=== PATIENT | female | born 1985 | race Caucasian/White ===

== ENCOUNTER 2016-06-14 07:55 | Emergency (ER) | payer MEDICARE, OTHER, SELFPAY ==
[2016-06-14] MEDS ORDERED: ONDANSETRON 4MG/2ML VIAL (J2405) As Ordered ONE (08:23)
[2016-06-14] MEDS ORDERED: KETOROLAC 30 MG/ML VIAL (J1885) As Ordered ONE (08:23)
[2016-06-14 08:44] LABS: BASO % 0.3 % (0.0-1.0); EOS # 0.2 K/mm3 (0.0-0.50); LARGE UNSTAINED CELL # 0.1 K/mm3 (0.0-0.4); LARGE UNSTAINED CELL % 1.1 % (0.0-4.0); LYMPH # 1.5 K/mm3 (1.5-4.5); LYMPH % 16.9 % (24.0-44.0); MEAN CORPUSCULAR HEMOGLOBIN 29.4 pg (27.0-33.0); MEAN CORPUSCULAR HGB CONC 32.8 g/dl (32.0-36.5); MEAN CORPUSCULAR VOLUME 89.8 fl (80.0-96.0); MONO # 0.5 K/mm3 (0.0-0.8); MONO % 5.9 % (0.0-5.0); NEUTROPHILS # 6.4 K/mm3 (1.8-7.7); NEUTROPHILS % 73.8 % (36.0-66.0); PLATELET COUNT, AUTOMATED 212 k/mm3 (150-450); WHITE BLOOD COUNT 8.7 K/mm3 (4.0-10.0)
[2016-06-14 09:03] LABS: ANION GAP 10 MEQ/L (8-16); BLOOD UREA NITROGEN 10 MG/DL (7-18); CALCIUM LEVEL 8.9 MG/DL (8.5-10.1); CARBON DIOXIDE LEVEL 24 MEQ/L (21-32); CHLORIDE LEVEL 106 MEQ/L (98-107); CREATININE FOR GFR 0.78 MG/DL (0.55-1.02); GLOMERULAR FILTRATION RATE > 60.0 (>60); GLUCOSE, FASTING 98 MG/DL (70-105); POTASSIUM SERUM 3.9 MEQ/L (3.5-5.1); SODIUM LEVEL 140 MEQ/L (136-145)
[2016-06-14] MEDS ORDERED: MORPHINE 2 MG/ML 1ML SYRINGE As Ordered ONE (09:29)
[2016-06-14] MEDS ORDERED: cefTRIAXone SOD 1 GM VIAL (J0696) As Ordered ONE (09:30)
--- NOTE | 2016-06-14 10:12 | REP ---
CT study of the abdomen and pelvis without IV or oral contrast: Renal stone protocol. History: Left flank pain. Question stone. Comparison CT study is from August 10, 2015. The patient gives additional history of cholecystectomy and tubal ligation. Findings: Digital auto clocks repairer radiograph demonstrates a normal bowel gas pattern. There are clips in right upper quadrant of the abdomen and there are tubal ligation clamps bilaterally projecting in the pelvis. The lung bases are clear. There is no evidence of pleural effusion. The liver and the spleen are normal in size and homogeneous in texture. There are clips in the gallbladder fossa. There are one or two clips in the posterior peritoneal space adjacent to the bottom edge of the liver as well. No focal liver mass lesion is seen. No adrenal lesion is observed on either side. Pancreas is unremarkable. No retroperitoneal mass or adenopathy is seen. Normal caliber aorta is seen. Kidneys are morphologically intact. No hydronephrosis is seen. No intrarenal calculus is observed. No ureteral stone is seen. Urinary bladder shows no abnormality. No uterine or ovarian abnormality is seen. Small and large bowel loops are unremarkable. A normal appendix is seen terminating in the right central pelvis. No abdominal wall defect is observed. No bony destructive lesion is seen. Impression: Status post tubal ligation and cholecystectomy. No evidence of urinary tract calculus or hydronephrosis. No acute intra-abdominal abnormality. Normal appendix seen. Signed by Pedro Harry MD 06/14/2016 02:33 P
--- NOTE | 2016-06-14 10:27 | EDDOCDS ---
Physician Documentation [facility] Name: Lavinia Brand Age: 30 yrs Sex: Female : 1985 Arrival Date: 06/14/2016 Time: 07:55 Bed I3 / M3 Private MD: Disposition: 06/14/16 10:18 Discharged to Home/Self Care. Impression: Urinary tract infection, site not specified - early left pyelonephritis. - Condition is Stable. - Discharge Instructions: Urinary Tract Infection. - Prescriptions for ZOFRAN ODT 4 mg Oral - dissolve 1 tablet by ORAL route every 8 hours As needed do not chew, do not swallow whole; 10 tablet. Macrobid 100 mg Oral Capsule - take 100 milligrams by ORAL route every 12 hours for 10 days; 20 capsule. - Medication Reconciliation, Local Pharmacy Hours form. - [facility] up[facility]; When: Call to arrange an appointment; Reason: Recheck today's complaints, Continuance of care, To establish care. Follow up: Emergency Department; When: As needed; Reason: Fever > 102F, Worsening of conditions. - Problem is new. - Symptoms have improved. Historical: - Allergies: No known drug Allergies; - Home Meds: 1. Motrin 800mg Oral tab as needed (Last dose: 06/13/2016 23:30) - PMHx: Kidney stones; - PSHx: Cholecystectomy; Tubal ligation; - Social history: Smoking status: Patient states former smoker of tobacco. No barriers to communication noted, The patient speaks fluent Qatari, Speaks appropriately for age. - Family history: Not pertinent. - : The pt / caregiver states he / she is not on anticoagulants. Home medication list is obtained from the patient. - Exposure Risk Screening:: None identified. 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 2 in. (157.48 cm) (R); Pain 8/10; 10:00 Pain 5/10; ck1 10:01 BP 129 / 69 RA Sitting (auto/lg); Pulse 68; Resp 20; Temp 98.7(O); Pulse Ox 97% on R/A; bnb Pain 6/10; 08:03 Body Mass Index 32.92 (81.65 kg, 157.48 cm) hs1 MDM: 08:19 IV Saline Lock ordered. ar2 08:19 UCG by Nursing ordered. ar2 08:19 -Blood Culture (Adults Only), peripheral from different site, or from device/port/PICC ar2 etc. if present ordered. 08:19 NS 0.9% 1000 ml IV at bolus once ordered. ar2 08:19 ketorolac 30 mg IVP once; ADMINISTER IF NEGATIVE UCG ordered. ar2 08:19 Ondansetron 4 mg IVP once; ADMINISTER IF NEGATIVE UCG ordered. ar2 08:20 CBC with Diff Ordered. EDMS 08:20 MED Profile Ordered. EDMS 08:20 UA Ordered. EDMS 08:20 Urine Culture Ordered. EDMS 08:20 -Blood Culture Ordered. EDMS 08:27 BLOOD CULTURES Ordered. EDMS 08:33 -Blood Culture (Adults Only), peripheral from different site, or from device/port/PICC mcp etc. if present complete. 09:16 [facility] Payment Agreement was scanned into [employer] and attached to record. jp5 09:16 Financial registration complete. jp5 09:22 CBC with Diff Reviewed. ar2 09:22 UA Reviewed. ar2 09:22 MED Profile Reviewed. ar2 09:26 cefTRIAXone 1 grams IVPB once over 30 mins; dilute in 50mL of NS or D5W ordered. ar2 09:26 morphine 2 mg IVP once ordered. ar2 09:27 CT ABD & PELVIS: No Contrast Ordered. EDMS Point of Care Testing: Urine : 08:23 hCG Reading: Negative; jam1 Ranges: Administered Medications: 08:29 Drug: NS 0.9% 1000 ml [sodium chloride 0.9 % intravenous solution] Route: IV; Rate: hs1 bolus; Site: left antecubital; 08:29 Drug: ketorolac 30 mg [ketorolac 30 mg/mL (1 mL) injection solution (1 mL)] Route: IVP; hs1 Site: left antecubital; 08:29 Drug: Ondansetron 4 mg [ondansetron HCl 2 mg/mL intravenous solution (2 mL)] Route: hs1 IVP; Site: left antecubital; 09:41 Drug: cefTRIAXone 1 grams [ceftriaxone 1 gram solution for injection] Route: IVPB; ck1 Infused Over: 30 mins; Site: left antecubital; :41 Drug: morphine 2 mg [morphine 2 mg/mL intravenous cartridge (1 mL)] Route: IVP; Site: ck1 left antecubital; 10:00 Follow up: Pain 09/14 Adult; Response: Confirmed pt not driving.; No Adverse Reaction; ck1 Pain is decreased Signatures: Dispatcher [employer] Deb Guzman RN RN Kandi Rasheed RN RN ck1 Jaylan Simons PA-C PAKatherine ar2 Mary Kate Mendez RN RN hs1 Lauren Ledesma jp5 The chart was reviewed and I authenticate all verbal orders and agree with the evaluation and treatment provided.Attachments: :16 [facility] Payment Agreement jp5 MTDD
--- NOTE | 2016-06-14 10:28 | EDDOCDS ---
Nurse's Notes [facility] Name: Lavinia Brand Age: 30 yrs Sex: Female : 1985 Arrival Date: 06/14/2016 Time: 07:55 Bed I3 / M3 Private MD: Diagnosis: Urinary tract infection, site not specified-early left pyelonephritis Presentation: 06/14 08:03 Presenting complaint: Patient states: I believe I have a kidney infection. Pt reports hs1 fever and chills, not being able to get warm. Pain in back and nauseated. Adult Sepsis Screening: The patient does not have new or worsening altered mentation. Patient's respiratory rate is less than 22. Systolic blood pressure is greater than 100. Patient has a qSOFA score of 0- Negative Sepsis Screen. Suicide/Homicide risk assessment- the patient denies having any suicidal and/or homicidal ideations and does not present with any other emotional, behavioral or mental health complaints. Status: Patient is not a guest service host or dependent. Transition of care: patient was not received from another setting of care. 08:03 Acuity: NICHOL Level 3 hs1 08:03 Method Of Arrival: Walkin/Carried/Asstd hs1 Triage Assessment: 08:06 General: Appears uncomfortable, Behavior is appropriate for age, cooperative, crying. hs1 Pain: Location: left low back, suprapubic area, left lower quadrant, left femoral area, left inguinal area and left iliac crest Pain currently is 8 out of 10 on a pain scale. HIV screening NA for this visit Offered previously. Respiratory: No deficits noted. Derm: Skin is pink, warm & dry. normal. 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 Motrin 800mg Oral tab as needed (Last dose: 06/13/2016 23:30) - PMHx: Kidney stones; - PSHx: Cholecystectomy; Tubal ligation; - Social history: Smoking status: Patient states former smoker of tobacco. No barriers to communication noted, The patient speaks fluent Macedonian, Speaks appropriately for age. - Family history: Not pertinent. - : The pt / caregiver states he / she is not on anticoagulants. Home medication list is obtained from the patient. - Exposure Risk Screening:: None identified. Screenin:32 Screening information is obtained from the patient. Fall risk: No risks identified. mcp Assistance ADL's: requires no assistance with activities of daily living. Abuse/DV Screen: The patient / caregiver reports he/she is: not in a situation that causes fear, pain or injury. Nutritional screening: No deficits noted. Advance Directives: There is no active DNR order. home support is adequate. Assessment: 08:32 General: Appears distressed, uncomfortable, Behavior is cooperative, crying. Pain: mcp Location: left flank and left lower quadrant and suprapubic area Pain currently is 8 out of 10 on a pain scale. Noted to be crying. Neurological: No deficits noted. Respiratory: Airway is patent Respiratory effort is even, unlabored. Derm: Skin is pink, warm & dry. 09:25 General: Patient reports nausea has improved, pain 7/10. Resting quietly on stretcher, ck1 no acute distress noted at this time. SO at bedside, call light in reach. Will continue to monitor patient. 10:00 General: Patient OOB to bathroom. Gait steady, feeling lightheaded. No acute distress ck1 noted at this time, reports pain 5/10. Denies nausea. Call light in reach, SO at bedside. 10:25 General: Appears in no apparent distress, comfortable, Behavior is appropriate for age, ck1 cooperative. Pain: Location: abdomen Pain currently is 3 out of 10 on a pain scale. Neurological: Level of Consciousness is awake, alert, obeys commands. Respiratory: Respiratory effort is unlabored, Respiratory pattern is regular, symmetrical. : Denies vaginal bleeding. Derm: Skin is pink, warm & dry. Vital Signs: 08:03 BP 135 / 65; Pulse 116; Resp 18; Temp 99.4; Pulse Ox 98% ; Weight 81.65 kg (R); Height hs1 5 ft. 2 in. (157.48 cm) (R); Pain 8/10; 10:00 Pain 5/10; ck1 10:01 BP 129 / 69 RA Sitting (auto/lg); Pulse 68; Resp 20; Temp 98.7(O); Pulse Ox 97% on R/A; bnb Pain 6/10; 08:03 Body Mass Index 32.92 (81.65 kg, 157.48 cm) hs1 Vitals: 08:03 Log In Time: June 14, 2016 at 07:53. hs1 ED Course: 07:56 Patient visited by Phil Phoenix. mm15 07:56 Patient moved to Waiting mm15 08:04 Triage Initiated hs1 08:07 Patient moved to I3 / M3 hs1 08:08 Jaylan Simons PA-C is PHCP. ar2 08:08 Eva Vicente MD is Attending Physician. ar2 08:08 Patient visited by Jaylan Simons PA-C. ar2 08:31 -Blood Culture Sent. mcp 08:31 Urine Culture Sent. mcp 08:31 UA Sent. mcp 08:31 MED Profile Sent. [facility] 08:31 CBC with Diff Sent. [facility] 08:31 Inserted saline lock: 20 gauge in left antecubital area and blood collected. The [facility] patient tolerated the procedure well. Labs drawn. (by ED staff). Sent per order to lab. Urine collected. Clean catch specimen. Urine specimen sent to lab. 08:32 The patient / caregiver is instructed regarding the plan of care and ED course. Patient mcp has correct armband on for positive identification. Placed in gown. Bed in low position. Call light in reach. Adult w/ patient. 08:33 Patient visited by Deb Stern, DARVIN. [facility] 09:15 Patient visited by Kandi Link,DARVIN. ck1 09:16 [facility] Payment Agreement was scanned into [employer] and attached to record. jp5 09:40 Patient visited by Kandi Link,DARVIN. ck1 10:00 Patient visited by Kandi Link,DARVIN. ck1 10:02 Patient visited by Sussy Waters PCA. bnb 10:17 CT ABD & PELVIS: No Contrast Returned. EDMS 10:18 [facility] is Referral Physician. ar2 10:21 No procedures done that require assistance. ck1 10:25 Discontinued lock intact, bleeding controlled, pressure dressing applied, No ck1 redness/swelling at site. Administered Medications: 08:29 Drug: NS 0.9% 1000 ml [sodium chloride 0.9 % intravenous solution] Route: IV; Rate: hs1 bolus; Site: left antecubital; 08:29 Drug: ketorolac 30 mg [ketorolac 30 mg/mL (1 mL) injection solution (1 mL)] Route: IVP; hs1 Site: left antecubital; 08:29 Drug: Ondansetron 4 mg [ondansetron HCl 2 mg/mL intravenous solution (2 mL)] Route: hs1 IVP; Site: left antecubital; 09:41 Drug: cefTRIAXone 1 grams [ceftriaxone 1 gram solution for injection] Route: IVPB; ck1 Infused Over: 30 mins; Site: left antecubital; 09:41 Drug: morphine 2 mg [morphine 2 mg/mL intravenous cartridge (1 mL)] Route: IVP; Site: ck1 left antecubital; 10:00 Follow up: Pain 5/ Adult; Response: Confirmed pt not driving.; No Adverse Reaction; ck1 Pain is decreased Point of Care Testing: Urine : 08:23 hCG Reading: Negative; jam1 Ranges: Order Results: Lab Order: CBC with Diff; SPEC'M 06/14/16 08:30 Test: WHITE BLOOD COUNT; Value: 8.7; Range: 4.0-10.0; Units: K/mm3; Status: F Test: RED BLOOD COUNT; Value: 4.55; Range: 4.00-5.40; Units: M/mm3; Status: F Test: HEMOGLOBIN; Value: 13.4; Range: 12.0-16.0; Units: g/dl; Status: F Test: HEMATOCRIT; Value: 40.8; Range: 36.0-47.0; Units: %; Status: F Test: MEAN CORPUSCULAR VOLUME; Value: 89.8; Range: 80.0-96.0; Units: fl; Status: F Test: MEAN CORPUSCULAR HEMOGLOBIN; Value: 29.4; Range: 27.0-33.0; Units: pg; Status: F Test: MEAN CORPUSCULAR HGB CONC; Value: 32.8; Range: 32.0-36.5; Units: g/dl; Status: F Test: RED CELL DISTRIBUTION WIDTH; Value: 13.0; Range: 11.5-14.5; Units: %; Status: F Test: PLATELET COUNT, AUTOMATED; Value: 212; Range: 150-450; Units: k/mm3; Status: F Test: NEUTROPHILS %; Value: 73.8; Range: 36.0-66.0; Abnormal: Above high normal; Units: %; Status: F Test: LYMPH %; Value: 16.9; Range: 24.0-44.0; Abnormal: Below low normal; Units: %; Status: F Test: MONO %; Value: 5.9; Range: 0.0-5.0; Abnormal: Above high normal; Units: %; Status: F Test: EOS %; Value: 2.0; Range: 0.0-3.0; Units: %; Status: F Test: BASO %; Value: 0.3; Range: 0.0-1.0; Units: %; Status: F Test: LARGE UNSTAINED CELL %; Value: 1.1; Range: 0.0-4.0; Units: %; Status: F Test: NEUTROPHILS #; Value: 6.4; Range: 1.8-7.7; Units: K/mm3; Status: F Test: LYMPH #; Value: 1.5; Range: 1.5-4.5; Units: K/mm3; Status: F Test: MONO #; Value: 0.5; Range: 0.0-0.8; Units: K/mm3; Status: F Test: EOS #; Value: 0.2; Range: 0.0-0.50; Units: K/mm3; Status: F Test: BASO #; Value: 0.0; Range: 0.0-0.2; Units: K/mm3; Status: F Test: LARGE UNSTAINED CELL #; Value: 0.1; Range: 0.0-0.4; Units: K/mm3; Status: F Lab Order: MED Profile; [facility] 06/14/16 08:30 Test: GLUCOSE, FASTING; Value: 98; Range: 70-105; Units: MG/DL; Status: F Test: BLOOD UREA NITROGEN; Value: 10; Range: 7-18; Units: MG/DL; Status: F Test: CREATININE FOR GFR; Value: 0.78; Range: 0.55-1.02; Units: MG/DL; Status: F Test: GLOMERULAR FILTRATION RATE; Value: > 60.0; Range: >60; Status: F Test: SODIUM LEVEL; Value: 140; Range: 136-145; Units: MEQ/L; Status: F Test: POTASSIUM SERUM; Value: 3.9; Range: 3.5-5.1; Units: MEQ/L; Status: F Test: CHLORIDE LEVEL; Value: 106; Range: 98-107; Units: MEQ/L; Status: F Test: CARBON DIOXIDE LEVEL; Value: 24; Range: 21-32; Units: MEQ/L; Status: F Test: ANION GAP; Value: 10; Range: 8-16; Units: MEQ/L; Status: F Test: CALCIUM LEVEL; Value: 8.9; Range: 8.5-10.1; Units: MG/DL; Status: F Test Note: ; Units are mL/min/1.73 m2 Chronic Kidney Disease Staging per NKF: Stage I & II GFR >=60 Normal to Mildly Decreased Stage III GFR 30-59 Moderately Decreased Stage IV GFR 15-29 Severely Decreased Stage V GFR <15 Very Little GFR Left ESRD GFR <15 on PULL UP HAND Lab Order: UA; SPEC'M 06/14/16 08:30 Test: APPEARANCE, URINE; Value: HAZY; Range: CLEAR; Status: F Test: COLOR, URINE; Value: YELLOW; Range: YELLOW; Status: F Test: PH,URINE; Value: 8.0; Range: 5.0-9.0; Units: UNITS; Status: F Test: SPECIFIC GRAVITY URINE AUTO; Value: 1.013; Range: 1.002-1.035; Status: F Test: PROTEIN, URINE AUTO; Value: NEGATIVE; Range: NEGATIVE; Units: mg/dL; Status: F Test: GLUCOSE, URINE (UA) AUTO; Value: NEGATIVE; Range: NEGATIVE; Units: mg/dL; Status: F Test: KETONE, URINE AUTO; Value: NEGATIVE; Range: NEGATIVE; Units: mg/dL; Status: F Test: UROBILINOGEN, URINE AUTO; Value: 0.2; Range: 0.0-2.0; Units: mg/dL; Status: F Test: BILIRUBIN, URINE AUTO; Value: NEGATIVE; Range: NEGATIVE; Status: F Test: NITRITE, URINE AUTO; Value: NEGATIVE; Range: NEGATIVE; Status: F Test: LEUKOCYTE ESTERASE, URINE AUTO; Value: 2+; Range: NEGATIVE; Abnormal: Above high normal; Status: F Test: BLOOD, URINE BLOOD; Value: 1+; Range: NEGATIVE; Abnormal: Above high normal; Status: F Test: WBC, URINE AUTO; Value: 125; Range: 0-3; Abnormal: Above high normal; Units: /HPF; Status: F Test: RBC, URINE AUTO; Value: 11; Range: 0-3; Abnormal: Above high normal; Units: /HPF; Status: F Test: BACTERIA, URINE AUTO; Value: 2+; Range: NEGATIVE; Abnormal: Above high normal; Status: F Test: SQUAMOUS EPITHELIAL CELL UR AU; Value: 2; Range: 0-6; Units: /HPF; Status: F Test: MUCUS, URINE; Value: SMALL; Range: NEGATIVE; Status: F Test: HYALINE CAST, URINE AUTO; Value: 0; Range: 0-1; Units: /LPF; Status: F Radiology Order: CT ABD & PELVIS: No Contrast Test: CT ABD & PELVIS: No Contrast REASON FOR EXAMINATION: left flank pain ? stone; CT study of the abdomen and pelvis without IV or oral contrast: Renal stone; protocol.; ; History: Left flank pain. Question stone. Comparison CT study is from August 092015. The patient gives additional history of cholecystectomy and tubal; ligation.; ; Findings: Digital child watch attendant radiograph demonstrates a normal bowel gas pattern.; There are clips in right upper quadrant of the abdomen and there are tubal; ligation clamps bilaterally projecting in the pelvis.; ; The lung bases are clear. There is no evidence of pleural effusion. The liver; and the spleen are normal in size and homogeneous in texture. There are clips in; the gallbladder fossa. There are one or two clips in the posterior peritoneal; space adjacent to the bottom edge of the liver as well. No focal liver mass; lesion is seen. No adrenal lesion is observed on either side. Pancreas is; unremarkable. No retroperitoneal mass or adenopathy is seen. Normal caliber; aorta is seen.; ; Kidneys are morphologically intact. No hydronephrosis is seen. No intrarenal; calculus is observed. No ureteral stone is seen. Urinary bladder shows no; abnormality. No uterine or ovarian abnormality is seen. Small and large bowel; loops are unremarkable. A normal appendix is seen terminating in the right; central pelvis. No abdominal wall defect is observed. No bony destructive; lesion is seen.; ; Impression:; ; Status post tubal ligation and cholecystectomy. No evidence of urinary tract; calculus or hydronephrosis. No acute intra-abdominal abnormality. Normal; appendix seen.; ; ; ; ; Unreviewed; Outcome: 09:41 CT Study completed. ck1 10:18 Discharge ordered by Provider. ar2 10:25 Discharge Assessment: Patient awake, alert and oriented x 3. No cognitive and/or ck1 functional deficits noted. Patient verbalized understanding of disposition instructions. patient administered narcotics - yes. Pt provided with safe discharge. The following High Risk Discharge criteria are identified: None. Discharged to home ambulatory, with significant other. Condition: stable. Discharge instructions given to patient, Instructed on discharge instructions, follow up and referral plans. medication usage, Demonstrated understanding of instructions, medications, Pt was receptive of discharge instructions/ teaching. Prescriptions given X 2. Property :Personal belongings accompany Pt. 10:26 Patient left the ED. ck1 Signatures: Dispatcher [employer] EDMS Deb Stern RN RN Mary Olvera, BRASS POLISHER BRASS POLISHER jam1 Kandi Link RN RN ck1 Jaylan Simons, PA-Tejas PA-C ar2 Mary Kate Mendez, DARVIN RN hs1 Phil Phoenix mm15 Lauren Ledesma jp5 Sussy Waters, BRASS POLISHER BRASS POLISHER bnb [facility]
--- NOTE | 2016-06-16 11:28 | EDDOCDS ---
Physician Documentation [facility] Name: Lavinia Brand Age: 30 yrs Sex: Female : 1985 Arrival Date: 06/14/2016 Time: 07:55 Bed I3 / M3 Private MD: Disposition: 06/14/16 10:18 Discharged to Home/Self Care. Impression: Urinary tract infection, site not specified - early left pyelonephritis. - Condition is Stable. - Discharge Instructions: Urinary Tract Infection. - Prescriptions for ZOFRAN ODT 4 mg Oral - dissolve 1 tablet by ORAL route every 8 hours As needed do not chew, do not swallow whole; 10 tablet. Macrobid 100 mg Oral Capsule - take 100 milligrams by ORAL route every 12 hours for 10 days; 20 capsule. - Medication Reconciliation, Local Pharmacy Hours form. - [facility] up[facility]; When: Call to arrange an appointment; Reason: Recheck today's complaints, Continuance of care, To establish care. Follow up: Emergency Department; When: As needed; Reason: Fever > 102F, Worsening of conditions. - Problem is new. - Symptoms have improved. Historical: - Allergies: No known drug Allergies; - Home Meds: 1. Motrin 800mg Oral tab as needed (Last dose: 06/13/2016 23:30) - PMHx: Kidney stones; - PSHx: Cholecystectomy; Tubal ligation; - Social history: Smoking status: Patient states former smoker of tobacco. No barriers to communication noted, The patient speaks fluent Citizen Of [place], Speaks appropriately for age. - Family history: Not pertinent. - : The pt / caregiver states he / she is not on anticoagulants. Home medication list is obtained from the patient. - Exposure Risk Screening:: None identified. 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 2 in. (157.48 cm) (R); Pain 8/10; 10:00 Pain 5/10; ck1 10:01 BP 129 / 69 RA Sitting (auto/lg); Pulse 68; Resp 20; Temp 98.7(O); Pulse Ox 97% on R/A; bnb Pain 10; 08:03 Body Mass Index 32.92 (81.65 kg, 157.48 cm) hs1 MDM: 08:19 IV Saline Lock ordered. ar2 08:19 UCG by Nursing ordered. ar2 08:19 -Blood Culture (Adults Only), peripheral from different site, or from device/port/PICC ar2 etc. if present ordered. 08:19 NS 0.9% 1000 ml IV at bolus once ordered. ar2 08:19 ketorolac 30 mg IVP once; ADMINISTER IF NEGATIVE UCG ordered. ar2 08:19 Ondansetron 4 mg IVP once; ADMINISTER IF NEGATIVE UCG ordered. ar2 08:20 CBC with Diff Ordered. EDMS 08:20 MED Profile Ordered. EDMS 08:20 UA Ordered. EDMS 08:20 Urine Culture Ordered. EDMS 08:20 -Blood Culture Ordered. EDMS 08:27 BLOOD CULTURES Ordered. EDMS 08:33 -Blood Culture (Adults Only), peripheral from different site, or from device/port/PICC mcp etc. if present complete. 09:16 [facility] Payment Agreement was scanned into [employer] and attached to record. jp5 09:16 Financial registration complete. jp5 09:22 CBC with Diff Reviewed. ar2 09:22 UA Reviewed. ar2 09:22 MED Profile Reviewed. ar2 09:26 cefTRIAXone 1 grams IVPB once over 30 mins; dilute in 50mL of NS or D5W ordered. ar2 09:26 morphine 2 mg IVP once ordered. ar2 09:27 CT ABD & PELVIS: No Contrast Ordered. EDMS 06/15 12:06 T-Sheet-- Draft Copy was scanned into [employer] and attached to record. gb 12:06 Radiology Report was scanned into [employer] and attached to record. gb Point of Care Testing: Urine : 06/14 08:23 hCG Reading: Negative; jam1 Ranges: Administered Medications: 08:29 Drug: NS 0.9% 1000 ml [sodium chloride 0.9 % intravenous solution] Route: IV; Rate: hs1 bolus; Site: left antecubital; 08:29 Drug: ketorolac 30 mg [ketorolac 30 mg/mL (1 mL) injection solution (1 mL)] Route: IVP; hs1 Site: left antecubital; 08:29 Drug: Ondansetron 4 mg [ondansetron HCl 2 mg/mL intravenous solution (2 mL)] Route: hs1 IVP; Site: left antecubital; 09:41 Drug: cefTRIAXone 1 grams [ceftriaxone 1 gram solution for injection] Route: IVPB; ck1 Infused Over: 30 mins; Site: left antecubital; 09:41 Drug: morphine 2 mg [morphine 2 mg/mL intravenous cartridge (1 mL)] Route: IVP; Site: ck1 left antecubital; 10:00 Follow up: Pain 09/14 Adult; Response: Confirmed pt not driving.; No Adverse Reaction; ck1 Pain is decreased Signatures: Dispatcher [employer] EDMS Deb Stern RN RN [facility] Anaid Richards, Ar Reg Kandi Louis RN RN ck1 Jaylan Simons PA-C PA-C ar2 Mary Kate Mendez RN RN hs1 Lauren Ledesma jp5 The chart was reviewed and I authenticate all verbal orders and agree with the evaluation and treatment provided.Attachments: 09:16 [facility] Payment Agreement jp5 06/15 12:06 T-Sheet-- Draft Copy gb Chart Complete MTDD
--- NOTE | 2016-06-16 11:28 | EDDOCDS ---
Nurse's Notes [facility] Name: Lavinia Brand Age: 30 yrs Sex: Female : 1985 Arrival Date: 06/14/2016 Time: 07:55 Bed I3 / M3 Private MD: Diagnosis: Urinary tract infection, site not specified-early left pyelonephritis Presentation: 06/14 08:03 Presenting complaint: Patient states: I believe I have a kidney infection. Pt reports hs1 fever and chills, not being able to get warm. Pain in back and nauseated. Adult Sepsis Screening: The patient does not have new or worsening altered mentation. Patient's respiratory rate is less than 22. Systolic blood pressure is greater than 100. Patient has a qSOFA score of 0- Negative Sepsis Screen. Suicide/Homicide risk assessment- the patient denies having any suicidal and/or homicidal ideations and does not present with any other emotional, behavioral or mental health complaints. Status: Patient is not a office services representative or dependent. Transition of care: patient was not received from another setting of care. 08:03 Acuity: NICHOL Level 3 hs1 08:03 Method Of Arrival: Walkin/Carried/Asstd hs1 Triage Assessment: 08:06 General: Appears uncomfortable, Behavior is appropriate for age, cooperative, crying. hs1 Pain: Location: left low back, suprapubic area, left lower quadrant, left femoral area, left inguinal area and left iliac crest Pain currently is 8 out of 10 on a pain scale. HIV screening NA for this visit Offered previously. Respiratory: No deficits noted. Derm: Skin is pink, warm & dry. normal. 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 Motrin 800mg Oral tab as needed (Last dose: 06/13/2016 23:30) - PMHx: Kidney stones; - PSHx: Cholecystectomy; Tubal ligation; - Social history: Smoking status: Patient states former smoker of tobacco. No barriers to communication noted, The patient speaks fluent [place], Speaks appropriately for age. - Family history: Not pertinent. - : The pt / caregiver states he / she is not on anticoagulants. Home medication list is obtained from the patient. - Exposure Risk Screening:: None identified. Screenin:32 Screening information is obtained from the patient. Fall risk: No risks identified. mcp Assistance ADL's: requires no assistance with activities of daily living. Abuse/DV Screen: The patient / caregiver reports he/she is: not in a situation that causes fear, pain or injury. Nutritional screening: No deficits noted. Advance Directives: There is no active DNR order. home support is adequate. Assessment: 08:32 General: Appears distressed, uncomfortable, Behavior is cooperative, crying. Pain: mcp Location: left flank and left lower quadrant and suprapubic area Pain currently is 8 out of 10 on a pain scale. Noted to be crying. Neurological: No deficits noted. Respiratory: Airway is patent Respiratory effort is even, unlabored. Derm: Skin is pink, warm & dry. 09:25 General: Patient reports nausea has improved, pain 7/10. Resting quietly on stretcher, ck1 no acute distress noted at this time. SO at bedside, call light in reach. Will continue to monitor patient. 10:00 General: Patient OOB to bathroom. Gait steady, feeling lightheaded. No acute distress ck1 noted at this time, reports pain 5/10. Denies nausea. Call light in reach, SO at bedside. 10:25 General: Appears in no apparent distress, comfortable, Behavior is appropriate for age, ck1 cooperative. Pain: Location: abdomen Pain currently is 3 out of 10 on a pain scale. Neurological: Level of Consciousness is awake, alert, obeys commands. Respiratory: Respiratory effort is unlabored, Respiratory pattern is regular, symmetrical. : Denies vaginal bleeding. Derm: Skin is pink, warm & dry. Vital Signs: 08:03 BP 135 / 65; Pulse 116; Resp 18; Temp 99.4; Pulse Ox 98% ; Weight 81.65 kg (R); Height hs1 5 ft. 2 in. (157.48 cm) (R); Pain 8/10; 10:00 Pain 5/10; ck1 10:01 BP 129 / 69 RA Sitting (auto/lg); Pulse 68; Resp 20; Temp 98.7(O); Pulse Ox 97% on R/A; bnb Pain 6/10; 08:03 Body Mass Index 32.92 (81.65 kg, 157.48 cm) hs1 Vitals: 08:03 Log In Time: June 14, 2016 at 07:53. hs1 ED Course: 07:56 Patient visited by Phil Phoenix. mm15 07:56 Patient moved to Waiting mm15 08:04 Triage Initiated hs1 08:07 Patient moved to I3 / M3 hs1 08:08 Jaylan Simons PA-C is PHCP. ar2 08:08 Eva Vicente MD is Attending Physician. ar2 08:08 Patient visited by Jaylan Simons PA-C. ar2 08:31 -Blood Culture Sent. mcp 08:31 Urine Culture Sent. mcp 08:31 UA Sent. mcp 08:31 MED Profile Sent. [facility] 08:31 CBC with Diff Sent. [facility] 08:31 Inserted saline lock: 20 gauge in left antecubital area and blood collected. The [facility] patient tolerated the procedure well. Labs drawn. (by ED staff). Sent per order to lab. Urine collected. Clean catch specimen. Urine specimen sent to lab. 08:32 The patient / caregiver is instructed regarding the plan of care and ED course. Patient mcp has correct armband on for positive identification. Placed in gown. Bed in low position. Call light in reach. Adult w/ patient. 08:33 Patient visited by Deb Stern, DARVIN. [facility] 09:15 Patient visited by Kandi Link,DARVIN. ck1 09:16 [facility] Payment Agreement was scanned into [employer] and attached to record. jp5 09:40 Patient visited by Kandi Link,RN. ck1 10:00 Patient visited by Kandi Link,RN. ck1 10:02 Patient visited by Sussy Waters PCA. bnb 10:17 CT ABD & PELVIS: No Contrast Returned. EDMS 10:18 [facility] is Referral Physician. ar2 10:21 No procedures done that require assistance. ck1 10:25 Discontinued lock intact, bleeding controlled, pressure dressing applied, No ck1 redness/swelling at site. 06/15 12:06 T-Sheet-- Draft Copy was scanned into [employer] and attached to record. gb 12:06 Radiology Report was scanned into [employer] and attached to record. gb Administered Medications: 06/14 08:29 Drug: NS 0.9% 1000 ml [sodium chloride 0.9 % intravenous solution] Route: IV; Rate: hs1 bolus; Site: left antecubital; 08:29 Drug: ketorolac 30 mg [ketorolac 30 mg/mL (1 mL) injection solution (1 mL)] Route: IVP; hs1 Site: left antecubital; 08:29 Drug: Ondansetron 4 mg [ondansetron HCl 2 mg/mL intravenous solution (2 mL)] Route: hs1 IVP; Site: left antecubital; 09:41 Drug: cefTRIAXone 1 grams [ceftriaxone 1 gram solution for injection] Route: IVPB; ck1 Infused Over: 30 mins; Site: left antecubital; 09:41 Drug: morphine 2 mg [morphine 2 mg/mL intravenous cartridge (1 mL)] Route: IVP; Site: ck1 left antecubital; 10:00 Follow up: Pain 09/14 Adult; Response: Confirmed pt not driving.; No Adverse Reaction; ck1 Pain is decreased Point of Care Testing: Urine : 08:23 hCG Reading: Negative; jam1 Ranges: Order Results: Lab Order: CBC with Diff; SPEC'M 06/14/16 08:30 Test: WHITE BLOOD COUNT; Value: 8.7; Range: 4.0-10.0; Units: K/mm3; Status: F Test: RED BLOOD COUNT; Value: 4.55; Range: 4.00-5.40; Units: M/mm3; Status: F Test: HEMOGLOBIN; Value: 13.4; Range: 12.0-16.0; Units: g/dl; Status: F Test: HEMATOCRIT; Value: 40.8; Range: 36.0-47.0; Units: %; Status: F Test: MEAN CORPUSCULAR VOLUME; Value: 89.8; Range: 80.0-96.0; Units: fl; Status: F Test: MEAN CORPUSCULAR HEMOGLOBIN; Value: 29.4; Range: 27.0-33.0; Units: pg; Status: F Test: MEAN CORPUSCULAR HGB CONC; Value: 32.8; Range: 32.0-36.5; Units: g/dl; Status: F Test: RED CELL DISTRIBUTION WIDTH; Value: 13.0; Range: 11.5-14.5; Units: %; Status: F Test: PLATELET COUNT, AUTOMATED; Value: 212; Range: 150-450; Units: k/mm3; Status: F Test: NEUTROPHILS %; Value: 73.8; Range: 36.0-66.0; Abnormal: Above high normal; Units: %; Status: F Test: LYMPH %; Value: 16.9; Range: 24.0-44.0; Abnormal: Below low normal; Units: %; Status: F Test: MONO %; Value: 5.9; Range: 0.0-5.0; Abnormal: Above high normal; Units: %; Status: F Test: EOS %; Value: 2.0; Range: 0.0-3.0; Units: %; Status: F Test: BASO %; Value: 0.3; Range: 0.0-1.0; Units: %; Status: F Test: LARGE UNSTAINED CELL %; Value: 1.1; Range: 0.0-4.0; Units: %; Status: F Test: NEUTROPHILS #; Value: 6.4; Range: 1.8-7.7; Units: K/mm3; Status: F Test: LYMPH #; Value: 1.5; Range: 1.5-4.5; Units: K/mm3; Status: F Test: MONO #; Value: 0.5; Range: 0.0-0.8; Units: K/mm3; Status: F Test: EOS #; Value: 0.2; Range: 0.0-0.50; Units: K/mm3; Status: F Test: BASO #; Value: 0.0; Range: 0.0-0.2; Units: K/mm3; Status: F Test: LARGE UNSTAINED CELL #; Value: 0.1; Range: 0.0-0.4; Units: K/mm3; Status: F Lab Order: [facility] Profile; SPEC'M 06/14/16 08:30 Test: GLUCOSE, FASTING; Value: 98; Range: 70-105; Units: MG/DL; Status: F Test: BLOOD UREA NITROGEN; Value: 10; Range: 7-18; Units: MG/DL; Status: F Test: CREATININE FOR GFR; Value: 0.78; Range: 0.55-1.02; Units: MG/DL; Status: F Test: GLOMERULAR FILTRATION RATE; Value: > 60.0; Range: >60; Status: F Test: SODIUM LEVEL; Value: 140; Range: 136-145; Units: MEQ/L; Status: F Test: POTASSIUM SERUM; Value: 3.9; Range: 3.5-5.1; Units: MEQ/L; Status: F Test: CHLORIDE LEVEL; Value: 106; Range: 98-107; Units: MEQ/L; Status: F Test: CARBON DIOXIDE LEVEL; Value: 24; Range: 21-32; Units: MEQ/L; Status: F Test: ANION GAP; Value: 10; Range: 8-16; Units: MEQ/L; Status: F Test: CALCIUM LEVEL; Value: 8.9; Range: 8.5-10.1; Units: MG/DL; Status: F Test Note: ; Units are mL/min/1.73 m2 Chronic Kidney Disease Staging per NKF: Stage I & II GFR >=60 Normal to Mildly Decreased Stage III GFR 30-59 Moderately Decreased Stage IV GFR 15-29 Severely Decreased Stage V GFR <15 Very Little GFR Left ESRD GFR <15 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 Lab Order: UA; SPEC'M 06/14/16 08:30 Test: APPEARANCE, URINE; Value: HAZY; Range: CLEAR; Status: F Test: COLOR, URINE; Value: YELLOW; Range: YELLOW; Status: F Test: PH,URINE; Value: 8.0; Range: 5.0-9.0; Units: UNITS; Status: F Test: SPECIFIC GRAVITY URINE AUTO; Value: 1.013; Range: 1.002-1.035; Status: F Test: PROTEIN, URINE AUTO; Value: NEGATIVE; Range: NEGATIVE; Units: mg/dL; Status: F Test: GLUCOSE, URINE (UA) AUTO; Value: NEGATIVE; Range: NEGATIVE; Units: mg/dL; Status: F Test: KETONE, URINE AUTO; Value: NEGATIVE; Range: NEGATIVE; Units: mg/dL; Status: F Test: UROBILINOGEN, URINE AUTO; Value: 0.2; Range: 0.0-2.0; Units: mg/dL; Status: F Test: BILIRUBIN, URINE AUTO; Value: NEGATIVE; Range: NEGATIVE; Status: F Test: NITRITE, URINE AUTO; Value: NEGATIVE; Range: NEGATIVE; Status: F Test: LEUKOCYTE ESTERASE, URINE AUTO; Value: 2+; Range: NEGATIVE; Abnormal: Above high normal; Status: F Test: BLOOD, URINE BLOOD; Value: 1+; Range: NEGATIVE; Abnormal: Above high normal; Status: F Test: WBC, URINE AUTO; Value: 125; Range: 0-3; Abnormal: Above high normal; Units: /HPF; Status: F Test: RBC, URINE AUTO; Value: 11; Range: 0-3; Abnormal: Above high normal; Units: /HPF; Status: F Test: BACTERIA, URINE AUTO; Value: 2+; Range: NEGATIVE; Abnormal: Above high normal; Status: F Test: SQUAMOUS EPITHELIAL CELL UR AU; Value: 2; Range: 0-6; Units: /HPF; Status: F Test: MUCUS, URINE; Value: SMALL; Range: NEGATIVE; Status: F Test: HYALINE CAST, URINE AUTO; Value: 0; Range: 0-1; Units: /LPF; Status: F Lab Order: Urine Culture; SPEC'M 06/14/16 08:30 Test: URINE CULTURE; Value: <EXTERNAL COMMENT eCWMed> FULL REPORT IN LAB NOTES (eCW and Medent).; Status: F Test: URINE CULTURE; Value: ORGANISM 1: ESCHERICHIA COLI; Status: F Test: URINE CULTURE; Value: ESCHERICHIA COLI; Status: F Test: URINE CULTURE; Value: COLONY COUNT CFU/ml >100,000; Status: F Test: URINE CULTURE; Value: GRAM NEG SENSI - VITEK 80; Status: F Test: URINE CULTURE; Value: Method: VIT2; Status: F Test: URINE CULTURE; Value: EXTD BRD SPCTRM BETA LACTAMASE -; Status: F Test: URINE CULTURE; Value: TRIMETHOPRIM/SULFAMETHOXAZOLE <=20 S; Status: F Test: URINE CULTURE; Value: AMPICILLIN <=2 S; Status: F Test: URINE CULTURE; Value: GENTAMICIN 4 S; Status: F Test: URINE CULTURE; Value: NITROFURANTOIN <=16 S; Status: F Test: URINE CULTURE; Value: CEFAZOLIN <=4 S; Status: F Test: URINE CULTURE; Value: LEVOFLOXACIN <=0.12 S; Status: F Test: URINE CULTURE; Value: TOBRAMYCIN 2 S; Status: F Test: URINE CULTURE; Value: CEFTRIAXONE <=1 S; Status: F Test: URINE CULTURE; Value: CEFTAZIDIME <=1 S; Status: F Test: URINE CULTURE; Value: AMPICILLIN/SULBACTAM <=2 S; Status: F Test: URINE CULTURE; Value: PIPERACILLIN/TAZOBACTAM <=4 S; Status: F Test: URINE CULTURE; Value: AZTREONAM <=1 S; Status: F Test: URINE CULTURE; Value: ERTAPENEM <=0.5 S; Status: F Test: URINE CULTURE; Value: MEROPENEM <=0.25 S; Status: F Test: URINE CULTURE; Value: TIGECYCLINE <=0.5 S; Status: F Test: URINE CULTURE; Value: CEFEPIME <=1 S; Status: F Lab Order: -Blood Culture; SPEC'M 06/14/16 08:30 Test: BLOOD CULTURE; Value: No growth after 24 hours . All specimens observed; Status: F Test: BLOOD CULTURE; Value: for 5 days. Results final at that time.; Status: F Test: BLOOD CULTURE; Value: No Growth after 48 hours. All Specimens observed; Status: F Test: BLOOD CULTURE; Value: for 7 days. Results final at that time.; Status: F Lab Order: BLOOD CULTURES; SPEC'M 06/14/16 08:36 Test: BLOOD CULTURE; Value: No growth after 24 hours . All specimens observed; Status: F Test: BLOOD CULTURE; Value: for 5 days. Results final at that time.; Status: F Test: BLOOD CULTURE; Value: No Growth after 48 hours. All Specimens observed; Status: F Test: BLOOD CULTURE; Value: for 7 days. Results final at that time.; Status: F Radiology Order: CT ABD & PELVIS: No Contrast Test: CT ABD & PELVIS: No Contrast REASON FOR EXAMINATION: left flank pain ? stone; CT study of the abdomen and pelvis without IV or oral contrast: Renal stone; protocol.; ; History: Left flank pain. Question stone. Comparison CT study is from August 092015. 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 There is no evidence of pleural effusion. The liver; and the spleen are normal in size and homogeneous in texture. There are clips in; the gallbladder fossa. There are one or two clips in the posterior peritoneal; space adjacent to the bottom edge of the liver as well. No focal liver mass; lesion is seen. No adrenal lesion is observed on either side. Pancreas is; unremarkable. No retroperitoneal mass or adenopathy is seen. Normal caliber; aorta is seen.; ; Kidneys are morphologically intact. No hydronephrosis is seen. No intrarenal; calculus is observed. No ureteral stone is seen. Urinary bladder shows no; abnormality. No uterine or ovarian abnormality is seen. Small and large bowel; loops are unremarkable. A normal appendix is seen terminating in the right; central pelvis. No abdominal wall defect is observed. No bony destructive; lesion is seen.; ; Impression:; ; Status post tubal ligation and cholecystectomy. No evidence of urinary tract; calculus or hydronephrosis. No acute intra-abdominal abnormality. Normal; appendix seen.; ; ; Signed by; Pedro Harry MD 06/14/2016 02:33 P; Outcome: 09:41 CT Study completed. ck1 10:18 Discharge ordered by Provider. ar2 10:25 Discharge Assessment: Patient awake, alert and oriented x 3. No cognitive and/or ck1 functional deficits noted. Patient verbalized understanding of disposition instructions. patient administered narcotics - yes. Pt provided with safe discharge. The following High Risk Discharge criteria are identified: None. Discharged to home ambulatory, with significant other. Condition: stable. Discharge instructions given to patient, Instructed on discharge instructions, follow up and referral plans. medication usage, Demonstrated understanding of instructions, medications, Pt was receptive of discharge instructions/ teaching. Prescriptions given X 2. Property :Personal belongings accompany Pt. 10:26 Patient left the ED. ck1 Signatures: Dispatcher [employer] EDMS Deb Stern, RN RN Mary Olvera, SEAFOOD CLERK SEAFOOD CLERK jam1 Anaid Richards, Reg Reg Kandi Louis RN RN ck1 Jaylan Simons PA-C PA-C ar2 Mary Kate Mendez RN RN hs1 Phil Phoenix mm15 Lauren Ledesma jp5 Sussy Waters, SEAFOOD CLERK SEAFOOD CLERK bnb Chart Complete MTDD
--- NOTE | 2016-06-16 11:28 | EDDOCDS ---
Physician Documentation [facility] Name: Lavinia Brand Age: 30 yrs Sex: Female : 1985 Arrival Date: 06/14/2016 Time: 07:55 Bed I3 / M3 Private MD: Disposition: 06/14/16 10:18 Discharged to Home/Self Care. Impression: Urinary tract infection, site not specified - early left pyelonephritis. - Condition is Stable. - Discharge Instructions: Urinary Tract Infection. - Prescriptions for ZOFRAN ODT 4 mg Oral - dissolve 1 tablet by ORAL route every 8 hours As needed do not chew, do not swallow whole; 10 tablet. Macrobid 100 mg Oral Capsule - take 100 milligrams by ORAL route every 12 hours for 10 days; 20 capsule. - Medication Reconciliation, Local Pharmacy Hours form. - [facility]; When: Call to arrange an appointment; Reason: Recheck today's complaints, Continuance of care, To establish care. Follow up: Emergency Department; When: As needed; Reason: Fever > 102F, Worsening of conditions. - Problem is new. - Symptoms have improved. Historical: - Allergies: No known drug Allergies; - Home Meds: 1. Motrin 800mg Oral tab as needed (Last dose: 06/13/2016 23:30) - PMHx: Kidney stones; - PSHx: Cholecystectomy; Tubal ligation; - Social history: Smoking status: Patient states former smoker of tobacco. No barriers to communication noted, The patient speaks fluent [place], Speaks appropriately for age. - Family history: Not pertinent. - : The pt / caregiver states he / she is not on anticoagulants. Home medication list is obtained from the patient. - Exposure Risk Screening:: None identified. SPINNER CONTINUOUS: 06/14 08:03 LMP 05/31/2016 hs1 Vital Signs: 08:03 BP 135 / 65; Pulse 116; Resp 18; Temp 99.4; Pulse Ox 98% ; Weight 81.65 kg / 180.01 lbs hs1 (R); Height 5 ft. 2 in. (157.48 cm) (R); Pain 8/10; 10:00 Pain 5/10; ck1 10:01 BP 129 / 69 RA Sitting (auto/lg); Pulse 68; Resp 20; Temp 98.7(O); Pulse Ox 97% on R/A; bnb Pain 10; 08:03 Body Mass Index 32.92 (81.65 kg, 157.48 cm) hs1 MDM: 08:19 IV Saline Lock ordered. ar2 08:19 UCG by Nursing ordered. ar2 08:19 -Blood Culture (Adults Only), peripheral from different site, or from device/port/PICC ar2 etc. if present ordered. 08:19 NS 0.9% 1000 ml IV at bolus once ordered. ar2 08:19 ketorolac 30 mg IVP once; ADMINISTER IF NEGATIVE UCG ordered. ar2 08:19 Ondansetron 4 mg IVP once; ADMINISTER IF NEGATIVE UCG ordered. ar2 08:20 CBC with Diff Ordered. EDMS 08:20 MED Profile Ordered. EDMS 08:20 UA Ordered. EDMS 08:20 Urine Culture Ordered. EDMS 08:20 -Blood Culture Ordered. EDMS 08:27 BLOOD CULTURES Ordered. EDMS 08:33 -Blood Culture (Adults Only), peripheral from different site, or from device/port/PICC mcp etc. if present complete. 09:16 [facility] Payment Agreement was scanned into [email or web address] and attached to record. jp5 09:16 Financial registration complete. jp5 09:22 CBC with Diff Reviewed. ar2 09:22 UA Reviewed. ar2 09:22 MED Profile Reviewed. ar2 09:26 cefTRIAXone 1 grams IVPB once over 30 mins; dilute in 50mL of NS or D5W ordered. ar2 09:26 morphine 2 mg IVP once ordered. ar2 09:27 CT ABD & PELVIS: No Contrast Ordered. EDMS 06/15 12:06 T-Sheet-- Draft Copy was scanned into [email or web address] and attached to record. gb 12:06 Radiology Report was scanned into [email or web address] and attached to record. gb Point of Care Testing: Urine : 06/14 08:23 hCG Reading: Negative; jam1 Ranges: Administered Medications: 08:29 Drug: NS 0.9% 1000 ml [sodium chloride 0.9 % intravenous solution] Route: IV; Rate: hs1 bolus; Site: left antecubital; 08:29 Drug: ketorolac 30 mg [ketorolac 30 mg/mL (1 mL) injection solution (1 mL)] Route: IVP; hs1 Site: left antecubital; 08:29 Drug: Ondansetron 4 mg [ondansetron HCl 2 mg/mL intravenous solution (2 mL)] Route: hs1 IVP; Site: left antecubital; 09:41 Drug: cefTRIAXone 1 grams [ceftriaxone 1 gram solution for injection] Route: IVPB; ck1 Infused Over: 30 mins; Site: left antecubital; 09:41 Drug: morphine 2 mg [morphine 2 mg/mL intravenous cartridge (1 mL)] Route: IVP; Site: ck1 left antecubital; 10:00 Follow up: Pain 09/14 Adult; Response: Confirmed pt not driving.; No Adverse Reaction; ck1 Pain is decreased Signatures: Dispatcher [employer] EDMS Deb Stern RN RN [facility] [place] Anaid Richards, Ar Reg Kandi Louis RN RN ck1 Jaylan Simons PA-C PA-C ar2 Mary Kate Mendez RN RN hs1 Lauren Ledesma jp5 The chart was reviewed and I authenticate all verbal orders and agree with the evaluation and treatment provided.Attachments: 09:16 [facility] Payment Agreement jp5 06/15 12:06 T-Sheet-- Draft Copy gb Chart Complete MTDD
== END 2016-06-14 10:26 | disposition home or self-care (01) ==
LOC: M ED 07:55
DX: N10 Acute pyelonephritis (principal); Z87.442 Personal history of urinary calculi; Z87.891 Personal history of nicotine dependence; Z79.1 Long term (current) use of non-steroidal anti-inflammatories (NSAID)
CPT/HCPCS: 36415; 74176; 80048; 81001; 81025; 85025; 87040; 87088; 87186; 96374; 96375; 99284; J0696; J1885; J2405

== ENCOUNTER → 2016-10-19 | Outpatient (CLI) | payer OTHER ==
[2016-10-19 13:37] LABS: BASO # 0.1 K/mm3 (0.0-0.2); BASO % 0.8 % (0.0-1.0); EOS # 0.2 K/mm3 (0.0-0.50); EOS % 2.3 % (0.0-3.0); LARGE UNSTAINED CELL # 0.1 K/mm3 (0.0-0.4); LARGE UNSTAINED CELL % 1.4 % (0.0-4.0); LYMPH # 3.2 K/mm3 (1.5-4.5); LYMPH % 41.6 % (24.0-44.0); MEAN CORPUSCULAR HEMOGLOBIN 29.5 pg (27.0-33.0); MEAN CORPUSCULAR VOLUME 92.1 fl (80.0-96.0); MONO # 0.4 K/mm3 (0.0-0.8); NEUTROPHILS # 3.7 K/mm3 (1.8-7.7); NEUTROPHILS % 48.9 % (36.0-66.0); PLATELET COUNT, AUTOMATED 247 k/mm3 (150-450); RED CELL DISTRIBUTION WIDTH 13.2 % (11.5-14.5); WHITE BLOOD COUNT 7.6 K/mm3 (4.0-10.0)
[2016-10-19 14:09] LABS: THYROXINE (T4) 9.5 UG/DL (4.5-12.0)
== END ==
LOC: M SMT 10:03
PROVIDERS: ATTEND Advanced Practice Midwife
DX: R87.610 Atypical squamous cells of undetermined significance on cytologic smear of cervix (ASC-US) (principal); N92.6 Irregular menstruation, unspecified; N92.0 Excessive and frequent menstruation with regular cycle; Z12.4 Encounter for screening for malignant neoplasm of cervix; Z11.3 Encounter for screening for infections with a predominantly sexual mode of transmission

== ENCOUNTER → 2016-10-25 | Outpatient (CLI) | payer OTHER | LOC: M RAD 18:06 | PROVIDERS: ATTEND Advanced Practice Midwife | DX: N94.10 Unspecified dyspareunia (principal); N92.6 Irregular menstruation, unspecified ==

== ENCOUNTER → 2017-06-29 | Outpatient (CLI) | payer OTHER ==
[2017-06-29 10:54] LABS: BASO # 0.1 10^3/uL (0.0-0.2); BASO % 0.8 % (0.0-1.0); EOS # 0.1 10^3/uL (0.0-0.50); EOS % 1.5 % (0.0-3.0); HEMATOCRIT 41.8 % (36.0-47.0); HEMOGLOBIN 13.7 g/dl (12.0-16.0); IMMATURE GRANULOCYTE % 0.3 % (0-3.0); LYMPH # 2.9 10^3/uL (1.5-4.5); LYMPH % 40.4 % (24.0-44.0); MEAN CORPUSCULAR HEMOGLOBIN 29.2 pg (27.0-33.0); MEAN CORPUSCULAR HGB CONC 32.8 g/dl (32.0-36.5); MEAN CORPUSCULAR VOLUME 89.1 fl (80.0-96.0); MONO # 0.6 10^3/uL (0.0-0.8); MONO % 8.4 % (0.0-5.0); NEUTROPHILS # 3.5 10^3/uL (1.8-7.7); NEUTROPHILS % 48.6 % (36.0-66.0); PLATELET COUNT, AUTOMATED 246 10^3/uL (150-450); RED BLOOD COUNT 4.69 10^6/uL (4.00-5.40); RED CELL DISTRIBUTION WIDTH 13.7 % (11.5-14.5); WHITE BLOOD COUNT 7.3 10^3/uL (4.0-10.0)
[2017-06-29 11:19] LABS: FREE T4 0.99 NG/DL (0.76-1.46)
== END ==
LOC: M RAD 10:02
DX: N92.0 Excessive and frequent menstruation with regular cycle (principal)

== ENCOUNTER → 2017-07-28 | Outpatient (REF) | payer OTHER | LOC: M LAB REF 18:12 | DX: N92.0 Excessive and frequent menstruation with regular cycle (principal) ==